=== PATIENT | male | born 1965 | race American Indian/Alaskan Native ===

== ENCOUNTER 2018-11-08 12:15 | Day surgery (SDC) | payer BC ==
--- NOTE | 2018-11-08 13:16 | Anesthesia Consultation ---
Anesthesia Consult and Med Hx Date of service: 11/08/18 - Airway Anesthetic Teeth Evaluation: Edentulous ROM Head & Neck: Adequate Mental/Hyoid Distance: Adequate Mallampati Class: Class III Intubation Access Assessment: Probably Good - Pulmonary Exam CTA: Yes - Cardiac Exam Cardiac Exam: RRR - Pre-Operative Health Status ASA Pre-Surgery Classification: ASA2 Proposed Anesthetic Plan: General - Pulmonary Hx Smoking: Yes (1-2cig/day (down from 1PPD)) Hx Respiratory Symptoms: No - Cardiovascular System Hx Hypertension: No Hx Heart Attack/AMI: No - Central Nervous System CVA: No - Gastrointestinal Hx Gastroesophageal Reflux Disease: No - Endocrine Hx Renal Disease: No Hx Liver Disease: No Hx Non-Insulin Dependent Diabetes: Yes Hx Thyroid Disease: No - Other Systems Hx Obesity: No - Additional Comments Anesthesia Medical History Comments: No hx anesthetic complications.
--- NOTE | 2018-11-08 13:16 | Anesthesia Day of Surgery ---
Anesthesia Day of Surgery - Day of Surgery Patient Examined: Yes Patient H&P Reviewed: Yes Patient is NPO: Yes
[2018-11-08] MEDS ORDERED: HYDROmorphone 1 MG/1 ML INJ IV PRN (13:30)
[2018-11-08] MEDS ORDERED: MIDAZOLAM 2 MG/2 ML INJ IV NR (14:00)
[2018-11-08] MEDS ORDERED: LACTATED RINGERS 1,000 ML IV SCH (14:00)
[2018-11-08] MEDS ORDERED: ceFAZolin/STERILE WATER 2 GM/20 ML SYRINGE IV NR (15:00)
[2018-11-08] MEDS ORDERED: HEPARIN 5,000 UNIT/1 ML VIAL SUB-Q NR (15:00)
[2018-11-08] MEDS ORDERED: fentaNYL 100 MCG/2 ML INJ ONE (18:17)
[2018-11-08] MEDS ORDERED: PROPOFOL 200 MG/20 ML VIAL IV ONE (18:18)
[2018-11-08] MEDS ORDERED: LIDOCAINE MPF (2%) 20 MG/1 ML VIAL 5 ML ONE (18:20)
[2018-11-08] MEDS ORDERED: BUPIVACAINE-EPINEPHRINE/PF 0.5%-1:200,000 (30 ML) VIAL INFILTRATI ONE ×2 (18:29→19:46)
[2018-11-08] MEDS ORDERED: dexAMETHasone 20 MG/5 ML VIAL ONE (18:56)
[2018-11-08] MEDS ORDERED: ONDANSETRON 4 MG/2 ML INJ ONE (18:56)
[2018-11-08] MEDS ORDERED: SODIUM CHLORIDE 0.9% 1000 ML IV SOLN IR ONE (19:07)
[2018-11-08] MEDS ORDERED: HYDROmorphone 1 MG/1 ML INJ ONE (19:15)
--- NOTE | 2018-11-08 19:32 | Post Operative Note ---
Pre-op diagnosis: Left perirectal abscess Post-op diagnosis: same Procedure: I&D of left perirectal abscess Anesthesia: GETA Surgeon: LINA SHARIF Estimated blood loss: minimal Pathology: list (C&S) Specimen disposition: to lab Condition: stable Disposition: PACU
[2018-11-08] MEDS ORDERED: oxyCODONE /ACETAMINOPHEN 5-325MG TAB PO PRN (19:34)
[2018-11-08 21:19] VITALS: BP 116/79
[2018-11-08] MEDS ORDERED: metFORMIN 500 MG TAB PO SCH (22:00)
[2018-11-09] MEDS ORDERED: NON-FORMULARY EACH (Empagliflozin [Jardiance] 25 MG) PO SCH (10:00)
[2018-11-09] MEDS ORDERED: LISINOPRIL 5 MG TAB PO SCH (10:00)
--- NOTE | 2018-11-15 13:20 | Procedure Note ---
Date of procedure: 11/08/18 Pre-op diagnosis: Left perirectal abscess Post-op diagnosis: same Procedure: I&D of left perirectal abscess Description of procedure: Pt was placed supine on the OR table. GETA was administered. Pt was repositioned to a high lithotomy position. The buttocks, perianal area and perineum were prepped and draped. An incision was made over the most fluctuant portion of the abscess. Cultures of draining pus were obtained. The incision was extended to unroof all portions of the abscess cavity. Hemostasis was obtained with the Bovie. The wound was irrigated with warm saline. The wound was then packed open with a dilute Betadine moistened Kerlix roll followed by dry 4 X 4's and Medipore tape. Pt tolerated the procedure well. He was taken to PACU in stable condition. Anesthesia: GETA Surgeon: LINA SHARIF Estimated blood loss: minimal Pathology: list (C&S) Specimen disposition: to lab Condition: stable Disposition: PACU
== END 2018-11-08 21:05 | disposition home or self-care (01) ==
LOC: OR 12:15
PROVIDERS: ATTEND Surgery
DX: K61.1 Rectal abscess (principal); E11.9 Type 2 diabetes mellitus without complications; F17.210 Nicotine dependence, cigarettes, uncomplicated; Z79.84 Long term (current) use of oral hypoglycemic drugs; Z79.899 Other long term (current) drug therapy
CPT/HCPCS: 46040; 82962; 87075; 87116; J0690; J1100; J1170; J1644; J2250; J2405; J2704; J3010; J7030; J7120